=== PATIENT | male | born 1980 | race American Indian/Alaskan Native ===

== ENCOUNTER 2017-03-15 11:11 | Outpatient (CLI) | payer OTHER ==
[2017-03-15 11:53] LABS: Alanine Aminotransferase 22 units/L (7-56); Albumin 4.1 g/dL (3.9-5); BUN/Creatinine Ratio 20; Blood Urea Nitrogen 14 mg/dL (9-20); Calcium 9.2 mg/dL (8.4-10.2); Hemolysis Index 1
== END 2017-03-15 11:12 | disposition home or self-care (01) ==
LOC: LAB 11:11
PROVIDERS: ATTEND Internal Medicine
DX: B20 Human immunodeficiency virus [HIV] disease (principal); F17.200 Nicotine dependence, unspecified, uncomplicated
CPT/HCPCS: 36415; 80053

== ENCOUNTER 2017-03-24 11:42 | Emergency (ER) | payer OTHER ==
[2017-03-24 12:54] VITALS: BP 116/82
== END 2017-03-24 12:51 | disposition left against medical advice (07) ==
LOC: ED 11:42
DX: K08.89 Other specified disorders of teeth and supporting structures (principal); Z53.21 Procedure and treatment not carried out due to patient leaving prior to being seen by health care provider

== ENCOUNTER 2019-04-11 10:00 | Emergency (ER) | payer OTHER, MEDICAID ==
[2019-04-11 10:21] VITALS: BP 128/79
[2019-04-11] MEDS ORDERED: IBUPROFEN 800 MG TAB PO ONE (11:52)
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
== END 2019-04-11 13:38 | disposition home or self-care (01) ==
LOC: ED 10:00
DX: S13.4XXA Sprain of ligaments of cervical spine, initial encounter (principal); S39.012A Strain of muscle, fascia and tendon of lower back, initial encounter; F17.200 Nicotine dependence, unspecified, uncomplicated; Z88.8 Allergy status to other drugs, medicaments and biological substances; Z21 Asymptomatic human immunodeficiency virus [HIV] infection status; Z79.899 Other long term (current) drug therapy; V49.59XA Passenger injured in collision with other motor vehicles in traffic accident, initial encounter; Y93.89 Activity, other specified; Y92.410 Unspecified street and highway as the place of occurrence of the external cause; Y99.8 Other external cause status
CPT/HCPCS: 72040; 72100

== ENCOUNTER 2019-05-20 20:14 | Emergency (ER) | payer SELFPAY ==
--- NOTE | 2019-05-20 22:05 | Emergency Department Report ---
Chief Complaint: Upper Respiratory Infection Stated Complaint: COUGH SNEEZING/FEEL WEAK AND TIRED DIZZINESS NAUSE Time Seen by Provider: 05/20/19 21:58 - HPI History of Present Illness: This is a 38 y.o. M. that presents to the ER with chills, fever, cough, and dizziness for 3-4 days. Taking theraflu last taken 2 hours STRIKER OFF. Reports night sweats. States return home via car from [facility] [address] in [place], [place] 4 days ago and sick every since. PMH HIV and asthma - Exam Vital Signs: Vital Signs 05/20/19 20:42 Temperature 98.6 F Pulse Rate 68 Respiratory 18 Rate Blood Pressure 120/80 O2 Sat by Pulse 98 Oximetry MSE screening note: Focused history and physical exam performed. Due to findings the following was ordered: Rapid flu CXR ED Disposition for MSE Condition: Stable
--- NOTE | 2019-05-20 22:31 | XRay Report ---
CHEST 2 VIEWS INDICATION / CLINICAL INFORMATION: Cough and night sweats. COMPARISON: None available. FINDINGS: SUPPORT DEVICES: None. HEART / MEDIASTINUM: The heart size and pulmonary vasculature are normal. LUNGS / PLEURA: No significant pulmonary or pleural abnormality. No pneumothorax. ADDITIONAL FINDINGS: No significant additional findings. IMPRESSION: No acute findings. Signer Name: Laureano Oliva MD Signed: 05/20/2019 10:27 PM Workstation Name: [id number]
[2019-05-20 23:41] LABS: Basophils # (Auto) 0.1 K/mm3 (0.0-0.1); Basophils % (Auto) 1.1 % (0.0-1.8); Eosinophils # (Auto) 0.1 K/mm3 (0.0-0.4); Eosinophils % (Auto) 2.5 % (0.0-4.3); Hematocrit 42.5 % (35.5-45.6); Hemoglobin 14.4 gm/dl (11.8-15.2); Lymphocytes # (Auto) 2.4 K/mm3 (1.2-5.4); Lymphocytes % (Auto) 50.2 % (13.4-35.0); Mean Corpuscular HGB Conc 34 % (32-34); Mean Corpuscular Volume 92 fl (84-94); Monocytes # (Auto) 0.3 K/mm3 (0.0-0.8); Platelet Count 167 K/mm3 (140-440); Red Blood Count 4.63 M/mm3 (3.65-5.03); Red Cell Distribution Width 14.1 % (13.2-15.2)
--- NOTE | 2019-05-21 00:02 | Cat Scan Report ---
CT head/brain wo con INDICATION / CLINICAL INFORMATION: MAIN: syncope, HEADACHES. TECHNIQUE: Axial CT imaging of brain was obtained without contrast. Coronal and sagittal reformatted imaging obt ained and reviewed. All CT scans at this location are performed using CT dose reduction for ALARA by means of automated exposure control. COMPARISON: None available. FINDINGS: No intracranial hemorrhage, mass, or midline shift. No extra-axial fluid collection or suggestion of acute territorial infarction. Ventricular system and basilar cisterns are unremarkable. Visualized paranasal sinuses and mastoid air cells are well aerated and clear. IMPRESSION: 1. Negative noncontrasted head CT scan. Signer Name: Gretchen Florentino MD Signed: 05/20/2019 11:58 PM Workstation Name: [id number]
[2019-05-21 00:07] LABS: Alanine Aminotransferase 22 units/L (7-56); Albumin 4.6 g/dL (3.9-5); BUN/Creatinine Ratio 13; Blood Urea Nitrogen 13 mg/dL (9-20); Calcium 9.3 mg/dL (8.4-10.2); Hemolysis Index 5
[2019-05-21 00:16] VITALS: BP 130/87
--- NOTE | 2019-05-21 01:37 | Emergency Department Report ---
- General Chief Complaint: Upper Respiratory Infection Stated Complaint: COUGH SNEEZING/FEEL WEAK AND TIRED DIZZINESS NAUSE Time Seen by Provider: 05/20/19 21:58 Source: patient Mode of arrival: Ambulatory Limitations: No Limitations - History of Present Illness Initial Comments: Patient is a 38-year-old -[place] male with history of HIV and who is noncompliant with medications because of suspected side effects presents to the ED with complaint of acute onset persistent nasal and sinus congestion, frontal sinus pressure, persistent dry cough with pleuritic chest wall pain and headache for the last 1 week. Patient also states that he had a single syncopal episode 4 days ago while at work. Patient also complains of generalized weakness, lack of appetite and body aches. Patient denies fever, nausea, vomiting, diarrhea, abdominal pain, chest pain, shortness of breath, dizziness, palpitations, change in vision or dysuria or urinary frequency and urgency. MD Complaint: cough, rhinorrhea, nasal congestion, sinus pain -: Sudden, week(s) (1) Severity: moderate Severity scale (0 -10): 5 Quality: sharp, aching Consistency: constant Improves With: nothing Worsens With: nothing Context: other (chronic HIV ) Associated Symptoms: denies other symptoms, chills, headache, rhinorrhea, nasal congestion, cough, shortness of breath. denies: fever, myalgias, diaphoresis, sore throat, abdominal pain, nausea, vomiting, diarrhea, dysuria, confusion, right sweats, weight loss, epistaxis, hoarseness Treatments Prior to Arrival: none - Related Data Previous Rx's Medication Instructions Recorded Last Taken Type Cyclobenzaprine HCl [Flexeril 5 MG 5 mg PO Q8HR PRN #15 tab 04/24/16 Unknown Rx TAB] Docusate Sodium [Colace] 100 mg PO BID PRN #10 capsule 04/24/16 Unknown Rx Omeprazole Magnesium [PriLOSEC Otc] 20 mg PO QDAY #14 tablet. 04/24/16 Unknown Rx Cyclobenzaprine [Flexeril] 10 mg PO QHS PRN #10 tablet 04/11/19 Unknown Rx Naproxen 500 mg PO Q12H PRN #20 tablet 04/11/19 Unknown Rx Benzonatate [Tessalon Perles] 100 mg PO Q8HR #30 capsule 05/21/19 Unknown Rx Cetirizine HCl [Zyrtec 10mg tab] 10 mg PO DAILY #30 tablet 05/21/19 Unknown Rx Doxycycline Hyclate 100 mg PO Q12H #20 tablet. 05/21/19 Unknown Rx Ibuprofen [Motrin] 800 mg PO Q8HR PRN #24 tablet 05/21/19 Unknown Rx Allergies Allergy/AdvReac Type Severity Reaction Status Date / Time sulfamethoxazole Allergy Hives Verified 04/23/16 18:30 [From Bactrim] trimethoprim [From Bactrim] Allergy Hives Verified 04/23/16 18:30 ED Review of Systems ROS: Stated complaint: COUGH SNEEZING/FEEL WEAK AND TIRED DIZZINESS NAUSE Other details as noted in HPI Constitutional: denies: chills, fever Eyes: denies: eye pain, eye discharge, vision change ENT: congestion. denies: ear pain, throat pain Respiratory: cough. denies: shortness of breath, wheezing Cardiovascular: syncope. denies: chest pain, palpitations Endocrine: no symptoms reported Gastrointestinal: denies: abdominal pain, nausea, vomiting, diarrhea Genitourinary: denies: urgency, dysuria Musculoskeletal: arthralgia, myalgia. denies: back pain, joint swelling Skin: denies: rash, lesions Neurological: headache. denies: weakness, paresthesias Psychiatric: anxiety. denies: depression Hematological/Lymphatic: denies: easy bleeding, easy bruising ED Past Medical Hx - Past Medical History Previous Medical History?: Yes Hx HIV: Yes - Surgical History Past Surgical History?: No - Social History Smoking Status: Current Some Day Smoker Substance Use Type: None - Medications Home Medications: Home Medications Medication Instructions Recorded Confirmed Last Taken Type Cyclobenzaprine HCl [Flexeril 5 MG 5 mg PO Q8HR PRN #15 tab 04/24/16 Unknown Rx TAB] Docusate Sodium [Colace] 100 mg PO BID PRN #10 capsule 04/24/16 Unknown Rx Omeprazole Magnesium [PriLOSEC Otc] 20 mg PO QDAY #14 tablet. 04/24/16 Unknown Rx Cyclobenzaprine [Flexeril] 10 mg PO QHS PRN #10 tablet 04/11/19 Unknown Rx Naproxen 500 mg PO Q12H PRN #20 tablet 04/11/19 Unknown Rx Benzonatate [Tessalon Perles] 100 mg PO Q8HR #30 capsule 05/21/19 Unknown Rx Cetirizine HCl [Zyrtec 10mg tab] 10 mg PO DAILY #30 tablet 05/21/19 Unknown Rx Doxycycline Hyclate 100 mg PO Q12H #20 tablet. 05/21/19 Unknown Rx Ibuprofen [Motrin] 800 mg PO Q8HR PRN #24 tablet 05/21/19 Unknown Rx ED Physical Exam - General Limitations: No Limitations General appearance: alert, in no apparent distress - Head Head exam: Present: atraumatic, normocephalic, normal inspection - Eye Eye exam: Present: normal appearance, PERRL, EOMI Pupils: Present: normal accommodation - ENT ENT exam: Present: normal orophraynx, mucous membranes moist, TM's normal bilaterally, normal external ear exam, other (Grossly congested nasal passages; palpable frontal sinus tenderness) - Neck Neck exam: Present: normal inspection, full ROM. Absent: lymphadenopathy - Respiratory Respiratory exam: Present: normal lung sounds bilaterally. Absent: respiratory distress, wheezes, rales, rhonchi, chest wall tenderness, accessory muscle use - Cardiovascular Cardiovascular Exam: Present: regular rate, normal rhythm, normal heart sounds. Absent: systolic murmur, diastolic murmur, rubs, gallop - GI/Abdominal GI/Abdominal exam: Present: soft, normal bowel sounds. Absent: tenderness, guarding, rebound, hyperactive bowel sounds, hypoactive bowel sounds, organomegaly - Extremities Exam Extremities exam: Present: normal inspection, full ROM, normal capillary refill - Back Exam Back exam: Present: normal inspection, full ROM. Absent: tenderness, muscle spasm, paraspinal tenderness, vertebral tenderness - Neurological Exam Neurological exam: Present: alert, oriented X3, CN II-XII intact, normal gait, reflexes normal - Psychiatric Psychiatric exam: Present: normal affect, normal mood - Skin Skin exam: Present: warm, dry, intact, normal color. Absent: rash ED Course Vital Signs 05/20/19 05/20/19 05/21/19 20:42 21:59 00:15 Temperature 98.6 F 98.4 F 98.1 F Pulse Rate 68 69 64 Respiratory 18 18 16 Rate Blood Pressure 120/80 120/80 Blood Pressure 130/87 [Right] O2 Sat by Pulse 98 98 98 Oximetry ED Medical Decision Making - Lab Data Result diagrams: 05/20/19 23:15 05/20/19 23:15 - Radiology Data Radiology results: report reviewed, image reviewed Chest x-ray shows no acute cardiopulmonary abnormalities or pneumonitis, pneumothorax or pleural effusion. The head CT scan without contrast shows no acute intracranial abnormalities or hemorrhage. - Medical Decision Making This is a 38-year-old male with a history of HIV and who is noncompliant with medications and who presented to the ED with persistent nasal and sinus congestion, frontal sinus pressure, persistent dry cough, pleuritic chest wall pain, diffuse body aches and pains and syncope. In the ED, patient is alert and oriented x3 and is not in distress. Lab test results were reviewed and are all nonactionable including rapid influenza which was negative. Chest x-ray shows no acute cardiopulmonary abnormalities or pneumonitis, pleural effusion or pneumothorax. Head CT scan without contrast shows no acute intracranial abnormalities or hemorrhage. EKG shows sinus bradycardia with a ventricular rate of [address] or T wave abnormalities. Patient was discharged home on medications and given a referral to the infectious disease specialist for follow-up for his HIV condition. Patient was referred to be made to infectious disease consultants and patient given a phone number to contact the office for follow-up. Patient was advised to return to the ED immediately if symptoms get worse. - Differential Diagnosis Pneumonia; URI; Flu; CAD; Bronchitis; Sinusitis Critical care attestation.: If time is entered above; I have spent that time in minutes in the direct care of this critically ill patient, excluding procedure time. ED Disposition Clinical Impression: Acute upper respiratory infection, Vasovagal syncope Acute sinusitis Qualifiers: Sinusitis location: unspecified location Recurrence: recurrent Qualified Code(s): J01.91 - Acute recurrent sinusitis, unspecified Acute bronchitis Qualifiers: Bronchitis organism: unspecified organism Qualified Code(s): J20.9 - Acute bronchitis, unspecified Disposition: DC-01 TO HOME OR SELFCARE Is pt being admited?: No Does the pt Need Aspirin: No Condition: Stable Instructions: Acute Bronchitis (ED), Syncope (ED), Acute Bacterial Rhin osinusitis (ED), Upper Respiratory Infection (ED) Additional Instructions: Take medications with food, drink plenty of fluids and follow-up with the [facility] infectious disease consultants as advised. Please contact the office to schedule a follow-up appointment for further evaluation. Return to the ED immediately if symptoms get worse. Prescriptions: Doxycycline Hyclate 100 mg PO Q12H #20 tablet. Ibuprofen [Motrin] 800 mg PO Q8HR PRN #24 tablet PRN Reason: Pain , Severe (7-10) Benzonatate [Tessalon Perles] 100 mg PO Q8HR #30 capsule Cetirizine HCl [Zyrtec 10mg tab] 10 mg PO DAILY #30 tablet Referrals: STAR COLIN MD [Staff Physician] - 3-5 Days Forms: Work/School Release Form(ED) Time of Disposition: 01:43 Print Language: NAURUAN
== END 2019-05-21 02:01 | disposition home or self-care (01) ==
LOC: ED 20:14
DX: J01.90 Acute sinusitis, unspecified (principal); J20.9 Acute bronchitis, unspecified; R55 Syncope and collapse; F17.200 Nicotine dependence, unspecified, uncomplicated
CPT/HCPCS: 36415; 70450; 71046; 80053; 84484; 85025; 87400; 93005; 93010; 99284